=== PATIENT | female | born 1990 | race Two or more races ===

== ENCOUNTER → 2022-12-31 14:55 | Outpatient (BNVA) | payer OTHER, SELFPAY | PROVIDERS: Visit Provider Nurse Practitioner Family | DX: R55 Syncope and collapse (principal); R06.09 Other forms of dyspnea; R00.2 Palpitations; R51.9 Headache, unspecified; R41.89 Other symptoms and signs involving cognitive functions and awareness | CPT/HCPCS: 99202 ==

== ENCOUNTER 2023-01-03 15:48 | Outpatient (REF) | payer OTHER, SELFPAY ==
[2023-01-03 16:03] LABS: MANUAL DIFF FLAG NO
[2023-01-03 16:22] LABS: Basophils Percent Auto 0.3 % (0-2); Eosinophils Absolute Auto 0.1 X10*3/uL (0.0-0.4); Eosinophils Percent Auto 0.6 % (0-4); Hematocrit 40.6 % (37.0-47.0); Hemoglobin 12.8 g/dl (12.0-16.0); Imm Gran Abs Auto 0.04 X10*3/uL (0.00-0.03); Imm Gran Pct Auto 0.4 % (0.0-0.4); Lymphocytes Percent Auto 32.4 % (20-40); Mean Corpuscular HGB Conc 31.5 g/dl (31.0-35.0); Mean Corpuscular Volume 85.7 fL (80.0-98.0); Mean Platelet Volume 8.9 fL (9.4-12.3); Monocytes Absolute Auto 0.6 X10*3/uL (0.1-1.2); Monocytes Percent Auto 6.6 % (2-11); Neutrophils Absolute Auto 5.5 x10*3/uL (2.0-8.3); Neutrophils Percent Auto 59.7 % (45-73); Platelet Count 482 X10*3/uL (160-400); Red Blood Count 4.74 X10*6/uL (4.20-5.50); Red Cell Distribution Width 14.3 % (11.0-16.0); White Blood Count 9.3 X10*3/uL (4.8-10.8)
[2023-01-03 17:10] LABS: Alanine Aminotransferase 20 U/L (0-31); Albumin Level 4.2 g/dL (3.5-5.0); Alkaline Phosphatase 56 U/L (39-117); Anion Gap 11 (12-20); Aspartate Amino Transferase 15 U/L (5-31); Bilirubin Total 0.3 mg/dL (0.0-1.0); Blood Urea Nitrogen 10 mg/dL (9-16); Calcium 9.2 mg/dL (8.4-10.2); Carbon Dioxide 28 mmol/L (22-29); Chloride 106 mmol/L (96-108); Estimated Glomerular Filt Rate > 60; Glucose Random 80 mg/dL (60-115); Potassium 4.6 mmol/L (3.3-5.1); Sodium 140 mmol/L (135-145); Total Protein 6.9 g/dL (6.5-8.0)
[2023-01-03 17:26] LABS: TSH reflex Free T4 1.46 uIU/mL (0.32-4.0)
== END 2023-01-03 15:49 | disposition home or self-care (01) ==
LOC: HO.LAB 15:48
PROVIDERS: Visit Provider Nurse Practitioner Family
DX: R00.2 Palpitations (principal); R06.09 Other forms of dyspnea; R55 Syncope and collapse
CPT/HCPCS: 36415; 80053; 84443; 85025

== ENCOUNTER 2023-01-05 17:24 | Outpatient (REF) | payer OTHER, SELFPAY ==
[2023-01-16 17:08] LABS: Saliva Cortisol 0.08 mcg/dL
== END 2023-01-05 17:25 | disposition home or self-care (01) ==
LOC: HO.LNP 17:24
PROVIDERS: Visit Provider Nurse Practitioner Family
DX: R55 Syncope and collapse (principal); R06.09 Other forms of dyspnea; R00.2 Palpitations
CPT/HCPCS: 82530

== ENCOUNTER → 2023-01-21 11:00 | Outpatient (REF) | payer OTHER, SELFPAY ==
--- NOTE | 2023-01-21 11:03 | ECG_ITS ---
Test Reason : R55 Blood Pressure : / mmHG Vent. Rate : 085 BPM Atrial Rate : 085 BPM P-R Int : 134 ms QRS Dur : 082 ms QT Int : 366 ms P-R-T Axes : 053 049 038 degrees QTc Int : 435 ms Normal sinus rhythm Normal ECG No previous ECGs available Referred By: Jessica Reddy Electronically Signed By:JENNIFER CENTENO
--- NOTE | 2023-01-21 11:03 | CA_ITS ---
Acquisition Time: 2023-01-21 11:17:12 Total Exercise Time: 00:08:21 Test Indications: Dyspnea Medications: NONE Protocol: GEORGI Max HR: 193 BPM 102% of Pred: 189 BPM Max BP: 138/080 mmHG Max Work Load: 10.3 METS Exercise stress test with exercise 8 min 21 sec of Georgi protocol, achieving 102% MPHR, without anginal symptoms, with isolated PVCs in recovery, with normotensive response to exercise, without EKG changes meeting critieria for ischemia. Echo images obtained by tech at rest and immediately post peak exercise. Definity contrast used. Test reviewed with Dr Lunsford. Referred By: Jessica Reddy Overread By: LATIA MAAT
== END ==
LOC: HO.CARD 11:00
PROVIDERS: Visit Provider Nurse Practitioner Family
DX: R55 Syncope and collapse (principal); R06.09 Other forms of dyspnea; R00.2 Palpitations
CPT/HCPCS: 93005; 93350; Q9957

== ENCOUNTER 2023-02-18 08:20 | Outpatient (REF) | payer OTHER, SELFPAY ==
--- NOTE | ~2023-02-18 | MR_ITS ---
EXAMINATION: MR BRAIN WITHOUT CONTRAST CLINICAL INFORMATION: Syncope. Headaches and dizziness. COMPARISON: Head CT dated 05/06/2022. TECHNIQUE: Multiplanar, multisequence imaging of the brain was performed without contrast. FINDINGS: No diffusion abnormalities are identified to suggest an acute or subacute infarct. The ventricles are normal in size. No mass effect or midline shift is seen. Nonspecific mild scattered white matter signal changes noted in both cerebral hemispheres. No extra-axial fluid collections are seen. The brainstem and cerebellum are normal. The gradient refocused acquisition is normal. The craniovertebral junction, marrow signal, and midline structures are normal. The major intracranial flow voids at the level of the [place] are preserved. The dural venous sinus flow voids are maintained. The mastoid air cells and paranasal sinuses are well aerated. MR/MR head/brain wo con IMPRESSION: No acute process. Nonspecific mild scattered white matter signal changes.
== END 2023-02-18 08:21 | disposition home or self-care (01) ==
LOC: HO.MRI 08:20
PROVIDERS: Visit Provider Nurse Practitioner Family
DX: R55 Syncope and collapse (principal); R51.9 Headache, unspecified; R41.89 Other symptoms and signs involving cognitive functions and awareness
CPT/HCPCS: 70551

== ENCOUNTER 2023-07-05 13:05 | Outpatient (AMB) | payer OTHER, SELFPAY ==
--- NOTE | 2023-07-05 13:06 | MHC.OFFVIS ---
Intake Vital Signs 07/05/23 13:08 Height 5 ft 4 in Weight 214 lb BMI 36.7 BP 132/70 Blood Pressure Location Rt brachial Position Sitting Pulse 77 Pulse Source Pulse Oximeter Pulse Oximetry (%) 99 Oxygen Delivery Method Room Air Intake Visit Reasons: 2m f/u Dizziness Intake Note: Patient Presents for 2 month follow up. Patient states I still get weird feelings I notice when Im eating it happens occasionally, Allergies No Known Allergies [No Known Allergies*] Allergy (Unverified 07/05/23 13:09) Medication List - Last Reconciled 07/05/23 by FELISHA De Anda No Known Home Meds HPI HPI Comments History of Present Illness Details 32-yr-old female presents for f/u visit. Pt denies any significant interval medical changes. Pt reports she has been having an intermittent dizziness- like an odd feeling x's seconds. Memory is the same- prone to forgetting things. States has always been a good student, but has always struggled with test anxiety and taking exams. She endorses being fidgety and tries hard not to lose things. Feels generally she is an anxious person. Denies known family h/o ADD/ADHD, however her son is very active (but not inclined to label him as ADHD). 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 She has not had any near syncope, feeling like she would pass out w/ tunnel vision. Denies frequent palpitations. Not having any headaches. She is eating abou the same. No changes in sleep. 02/18/23, MR/MR head/brain wo con IMPRESSION: No acute process. Nonspecific mild scattered white matter signal changes. 01/21/23, Cardiopulmonary stress test: Normal 01/21/23, EKG: Normal sinus rhythm Normal ECG Last Resulted Lab Tests 01/05/23 02:12 Saliva Cortisol 0.08 PFSH Surgical History Hx of cholecystectomy Hx of tonsillectomy History of section Family History Paternal Grandmother Diabetes Maternal Grandfather Diabetes Arthritis Maternal Grandmother Diabetes Mother Hypertension Anemia Social History Alcohol intake: current Alcohol intake frequency: holidays/special occasions only Patient Tobacco Use Status: Current someday Tobacco user Review of Systems Const All systems reviewed & are unremarkable except as noted in HPI and below Physical Exam Vital Signs: Last Vital Signs Pulse 77 07/05/23 13:08 BP 132/70 07/05/23 13:08 Pulse Ox 99 07/05/23 13:08 Oxygen Delivery Method Room Air 07/05/23 13:08 BMI result Body Mass Index 36.7 Const General: cooperative and no acute distress Orientation/consciousness: patient oriented x3 HEENT Head: Yes normocephalic Resp Effort & Inspection: normal respiratory effort and able to speak in complete sentences Neuro General: patient oriented x3, gait normal and CN's II-XI intact bilaterally Cognition (Neuro): normal cognition Motor exam (neuro): 5/5 motor strength present throughout Psych Appearance: grossly normal Mental Status: mental status grossly normal Speech and movement: Normal speech and movement present Affect: normal affect Attitude: cooperative Thought process: Normal thought process present Thought content: Normal thought content present Insight: Good insight present (Psych) Judgement: Good judgement present (Psych) Assessment & Plan Assessment & Plan (1) Cognitive changes: Code(s): R41.89 - Other symptoms and signs involving cognitive functions and awareness (2) Test anxiety: Code(s): F41.8 - Other specified anxiety disorders (3) Near syncope: Code(s): R55 - Syncope and collapse Plan Reviewed: Labs- normal EKG- NSR Cardiac echo stress test- normal study Tilt-table test- normal study Brain MRI w/o- normal Continue to monitor episodes of brain fog, near syncope. Will refer pt for comprehensive neuro-psych eval- ? undiagnosed ADD or anxiety which may be contributing to cognitive difficulties, forgetfulness, test anxiety. f/u in 6 months or sooner prn. Orders: Referrals Neuropsychiatry Referral F41.8 - Other specified anxiety disorders, R41.89 - Other symptoms and signs involving cognitive functions and awareness Coding Level of Care Code Est Pt Level 4 (38002) Diagnoses Cognitive changes R41.89 Test anxiety F41.8 Near syncope R55
[2023-07-05 13:08] VITALS: BP 132/70; PULSE 77; O2SAT 99; BMI 36.7
== END 2023-07-05 13:35 | disposition home or self-care (01) ==
PROVIDERS: Visit Provider Nurse Practitioner Family
DX: R41.89 Other symptoms and signs involving cognitive functions and awareness (principal); F41.8 Other specified anxiety disorders; R55 Syncope and collapse
CPT/HCPCS: 99214

== ENCOUNTER → 2023-07-05 13:05 | Outpatient (BNVA) | payer OTHER, SELFPAY | PROVIDERS: Visit Provider Nurse Practitioner Family | DX: R55 Syncope and collapse (principal); R41.89 Other symptoms and signs involving cognitive functions and awareness; F41.8 Other specified anxiety disorders | CPT/HCPCS: 99212 ==

== ENCOUNTER 2024-01-20 08:02 | Outpatient (AMB) | payer OTHER, SELFPAY ==
[2024-01-20 08:04] VITALS: BP 120/78; PULSE 63; O2SAT 100; BMI 38.1
--- NOTE | 2024-01-20 08:04 | A.OFFVIS_ITS ---
Vital Signs 01/20/24 08:04 Height 5 ft 4 in Weight 222 lb BMI 38.1 BP 120/78 Blood Pressure Location Rt brachial Position Sitting Pulse 63 Pulse Source Pulse Oximeter Pulse Oximetry (%) 100 Oxygen Delivery Method Room Air Intake Visit Reasons: 6M follow up-LVM Intake Note: Patient presents for 6 month follow up. Patient still having really bad migraines Allergies No Known Allergies [No Known Allergies*] Allergy (Unverified 01/20/24 08:07) HPI Comments Details: 33-yr-old female presents for f/u visit. Pt denies any significant interval medical changes. Pt has not had a lightheadedness episode since August. She did see [facility]- had antoineal was told she likely has ADD. She is seeing a therapist who is helping her manage her stress. Has been having a 3 day migraine. Only takes Tylenol if she really needs to- make take the edge off. The migraine is different from the lightheaded episodes- where she will feel a sensation coming up over the head, her ears become warm, and will have tunnel vision. Not sure if this is a/w palpitations. Baseline headache characteristics: 6-03/21 aching crown of head to frontal area a/w eye pain photophobia, tiredness, activity intolerance. Lasts 3 days. Can occur weekly. Tries not to take anything for it. PFSH Surgical History Hx of cholecystectomy Hx of tonsillectomy History of section Family History Paternal Grandmother Diabetes Maternal Grandfather Diabetes Arthritis Maternal Grandmother Diabetes Mother Hypertension Anemia Social History Alcohol intake: current Alcohol intake frequency: holidays/special occasions only Patient Tobacco Use Status: Current someday Tobacco user Physical Exam Vital Signs: Last Vital Signs Pulse 63 01/20/24 08:04 BP 120/78 01/20/24 08:04 Pulse Ox 100 01/20/24 08:04 Oxygen Delivery Method Room Air 01/20/24 08:04 BMI result Body Mass Index 38.1 Const General: cooperative and no acute distress Orientation/consciousness: patient oriented x3 Resp Effort & Inspection: normal respiratory effort and able to speak in complete sentences Neuro General: patient oriented x3 Cranial nerves: Yes CN's II-XII intact bilaterally Cognition (Neuro): normal cognition Psych Appearance: grossly normal Mental Status: mental status grossly normal Speech and movement: Normal speech and movement present Affect: normal affect Attitude: cooperative Assessment & Plan Assessment & Plan (1) Migraine without aura: Code(s): G43.009 - Migraine without aura, not intractable, without status migrainosus Category: Medical (2) Near syncope: Code(s): R55 - Syncope and collapse Category: Medical (3) Cognitive changes: Code(s): R41.89 - Other symptoms and signs involving cognitive functions and awareness Category: Medical Plan Previous work-ip EKG- NSR Cardiac echo stress test- normal study Tilt-table test- normal study Brain MRI w/o- normal Continue increased fluids, standing slowly. Continue to monitor episodes of brain fog, near syncope. Information shared on migraine dx and tx. Pt is hesitant to take medications. May use Tylenol 650-1000mg q 4-6 hrs prn. Pt may benefit from trying OTC Riboflavin, Magnesium, or a Neuromodulation device- information shared. Continue psychotherapy. f/u in 6 months or sooner prn. Coding Level of Care Code Est Pt Level 3 (37848) Diagnoses Migraine without aura G43.009 Near syncope R55 Cognitive changes R41.89
== END 2024-01-20 08:57 | disposition home or self-care (01) ==
PROVIDERS: Visit Provider Nurse Practitioner Family
DX: G43.009 Migraine without aura, not intractable, without status migrainosus (principal); R55 Syncope and collapse; R41.89 Other symptoms and signs involving cognitive functions and awareness
CPT/HCPCS: 99213

== ENCOUNTER → 2024-01-20 08:02 | Outpatient (BNVA) | payer OTHER, SELFPAY | PROVIDERS: Visit Provider Nurse Practitioner Family | DX: G43.009 Migraine without aura, not intractable, without status migrainosus (principal); R55 Syncope and collapse; R41.89 Other symptoms and signs involving cognitive functions and awareness | CPT/HCPCS: 99212 ==

== ENCOUNTER 2024-08-07 14:30 | Outpatient (AMB) | payer OTHER, SELFPAY ==
--- NOTE | 2024-08-07 14:42 | MHC.OFFVIS ---
Vital Signs 08/07/24 14:43 Height 5 ft 4 in Weight 228 lb 2 oz BMI 39.2 BP 102/60 Blood Pressure Location Rt brachial Position Sitting Pulse 87 Pulse Source Pulse Oximeter Pulse Oximetry (%) 98 Oxygen Delivery Method Room Air Intake Visit Reasons: 6 Month F/U Intake Note: Patient presents for a 6 mo fu for migraines. 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 Pt denies any significant interval medical changes. She feels more forgetful. She does sleep a lot- she feels d/t cognitive fatigue. 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 She previously did see [facility]- patricia vasques was told she likely has ADD. She is seeing a therapist who is helping her manage her stress. Has been having a 2 migraine attacks per month, which last 3 day migraine attack which includes an airy postdrome period. She had the lightheadedness sensation more so when she has migraine attack. She needs to rest most of the day at least 1 days of the week. Tries not to take any medications for this- does not want to become dependent on meds. Only takes Tylenol if she really needs to- make take the edge off. Baseline lightheadedness episodes: she will feel a sensation coming up over the head, her ears become warm, and will have tunnel vision. Not sure if this is a/w palpitations. Baseline headache characteristics: 6-03/21 aching crown of head to frontal area a/w eye pain photophobia, tiredness, activity intolerance. Lasts 3 days. PFSH Surgical History Hx of cholecystectomy Hx of tonsillectomy History of section Family History Paternal Grandmother Diabetes Maternal Grandfather Diabetes Arthritis Maternal Grandmother Diabetes Mother Hypertension Anemia Social History Alcohol intake: current Alcohol intake frequency: holidays/special occasions only Patient Tobacco Use Status: Current someday Tobacco user Physical Exam Vital Signs: Last Vital Signs Pulse 87 08/07/24 14:43 BP 102/60 08/07/24 14:43 Pulse Ox 98 08/07/24 14:43 Oxygen Delivery Method Room Air 08/07/24 14:43 BMI result Body Mass Index 39.2 Const General: cooperative, no acute distress and tired appearing Orientation/consciousness: patient oriented x3 Resp Effort & Inspection: normal respiratory effort and able to speak in complete sentences Neuro General: patient oriented x3 Cranial nerves: Yes CN's II-XII intact bilaterally Cognition (Neuro): normal cognition Psych Appearance: grossly normal Mental Status: mental status grossly normal Speech and movement: Normal speech and movement present Affect: normal affect Attitude: cooperative Assessment & Plan Assessment & Plan (1) Migraine without aura: Code(s): G43.009 - Migraine without aura, not intractable, without status migrainosus Category: Medical (2) Near syncope: Code(s): R55 - Syncope and collapse Category: Medical (3) Cognitive changes: Code(s): R41.89 - Other symptoms and signs involving cognitive functions and awareness Category: Medical Plan Previous work-ip EKG- NSR Cardiac echo stress test- normal study Tilt-table test- normal study Brain MRI w/o- normal Future considerations- HST Continue increased fluids, standing slowly. Trial Adderall ER 5-10mg qam in hopes this helps brain fog, forgetfulness. Continue to monitor episodes of brain fog, near syncope. Information shared on migraine dx and tx. May use Tylenol 650-1000mg q 4-6 hrs prn. Pt may benefit from trying OTC Riboflavin, Magnesium, Feverfew, or Co_Q10 or a Neuromodulation device- information shared. Continue psychotherapy. f/u in 6 months or sooner prn. Medications: New dextroamphetamine-amphetamine 5 mg ER (Adderall XR) Partial Fill upon patient request. 5 - 10 mg (1 - 2 x 5 mg) PO QAM 30 days 60 caps 0RF Coding Level of Care Code Est Pt Level 4 (38007) Diagnoses Migraine without aura G43.009 Near syncope R55 Cognitive changes R41.89
[2024-08-07 14:43] VITALS: BP 102/60; PULSE 87; O2SAT 98; BMI 39.2
== END 2024-08-07 15:33 | disposition home or self-care (01) ==
PROVIDERS: Visit Provider Nurse Practitioner Family
DX: G43.009 Migraine without aura, not intractable, without status migrainosus (principal); R55 Syncope and collapse; R41.89 Other symptoms and signs involving cognitive functions and awareness
CPT/HCPCS: 99214

== ENCOUNTER → 2024-08-07 14:30 | Outpatient (BNVA) | payer OTHER, SELFPAY | PROVIDERS: Visit Provider Nurse Practitioner Family | DX: G43.009 Migraine without aura, not intractable, without status migrainosus (principal); R55 Syncope and collapse; R41.89 Other symptoms and signs involving cognitive functions and awareness | CPT/HCPCS: 99212 ==